=== PATIENT | male | born 1985 | race Caucasian/White ===

== ENCOUNTER 2019-02-13 19:37 | Emergency (ER) | payer OTHER ==
[~2019-02-13] VITALS: Ht 182.9 cm; Wt 122.7 kg
[2019-02-13 19:44] VITALS: Ht 182.9 cm; Wt 122.7 kg
[2019-02-13] MEDS ORDERED: BUSPAR 15 MG TA15 MG PO (19:45)
[2019-02-13] MEDS ORDERED: PROTONIX40 MG PO (19:45)
[2019-02-13] MEDS ORDERED: NEXIUM20 MG PO (19:45)
[2019-02-13] MEDS ORDERED: UNK ANTIDEPRESSANT (19:46)
[2019-02-13] MEDS ORDERED: LISINOPRIL10 MG PO (19:46)
[2019-02-13] MEDS ORDERED: MOBIC7.5 MG PO (19:46)
[2019-02-13 20:03] LABS: BASOPHILS 0.2 % (0-2); EOSINOPHILS 1.1 % (0-7); HEMATOCRIT 48.7 % (42.0-54.0); HEMOGLOBIN 16.9 g/dL (13.5-17.5); IMMATURE GRANULOCYTES 0.3 % (0-5); LYMPHOCYTES 9.3 % (15-50); MCH 30.7 pg (26.0-34.0); MCHC 34.7 g/dL (31.0-37.0); MCV 88.5 fL (80.0-100.0); MEAN PLATELET VOLUME 10.5 fL (7.4-10.4); MONOCYTES 9.6 % (2-11); NEUTROPHILS 79.5 % (40-80); PLATELET COUNT 219 10x3/uL (130-400); RDW 13.5 % (11.5-14.5); WBC 12.8 10x3/uL (4.8-10.8)
[2019-02-13 20:19] LABS: ALBUMIN 3.8 g/dL (3.4-5.0); ALKALINE PHOSPHATASE 99 U/L (46-116); ALT (SGPT) 31 U/L (10-68); CALC OSMOLALITY 277 mosm/kg (275-300); CARBON DIOXIDE 27.2 mmol/L (21.0-32.0); CHLORIDE - SERUM 102 mmol/L (98-107); CREATININE - SERUM 1.1 mg/dL (0.6-1.3); GLUCOSE 120 mg/dL (74-106); POTASSIUM - SERUM 3.9 mmol/L (3.5-5.1); PROTEIN - SERUM 7.8 g/dL (6.4-8.2); SODIUM 137 mmol/L (136-145); UREA NITROGEN 21 mg/dL (7-18); eGFR NON AFRICAN AMERICAN 81 mL/min (90-120)
[2019-02-13 20:22] LABS: AMYLASE - SERUM 32 U/L (25-115); LIPASE 110 U/L (73-393)
[2019-02-13 20:27] LABS: TROPONIN-I < 0.017 ng/mL (0.000-0.060)
[2019-02-13 21:43] LABS: APPEARANCE CLEAR (CLEAR); BILIRUBIN NEGATIVE (NEGATIVE); COLOR YELLOW (YELLOW); GLUCOSE NEGATIVE (NEGATIVE); KETONE NEGATIVE (NEGATIVE); NITRITE NEGATIVE (NEGATIVE); PROTEIN 2+ mg/dL (NEGATIVE); SPECIFIC GRAVITY 1.025 (1.005-1.020); UROBILINOGEN NORMAL (NORMAL)
[2019-02-13] MEDS ORDERED: FLAGYL500 MG PO (23:35)
[2019-02-13] MEDS ORDERED: LEVSIN/ANASP0.125 MG PO (23:35)
[2019-02-13] MEDS ORDERED: LEVAQUIN750 MG PO (23:35)
[2019-02-13] MEDS ORDERED: FLORASTOR250 MG PO (23:35)
[2019-02-14 00:14] VITALS: BP 128/78
== END 2019-02-14 00:14 | disposition home or self-care (01) ==
LOC: D.ER 19:37
PROVIDERS: Family Medicine
DX: K51.00 Ulcerative (chronic) pancolitis without complications (principal); R10.9 Unspecified abdominal pain; K52.9 Noninfective gastroenteritis and colitis, unspecified; D72.829 Elevated white blood cell count, unspecified; R11.2 Nausea with vomiting, unspecified; R19.7 Diarrhea, unspecified